=== PATIENT | female | born 1980 | race Caucasian/White ===

== ENCOUNTER 2019-07-15 17:13 | Emergency (ER) | payer OTHER ==
--- NOTE | 2019-07-15 17:21 | ED Physician Documentation ---
Lower Extremity Injury - HISTORIAN Historian: patient - HPI Stated Complaint: left knee pain Chief Complaint: Lower Extremity Problem Onset: hours (3) Context: direct blow - ROS CONST: no problems - PAST HX Past History: other (hypothyroidism ) Immunizations: UTD Allergies/Adverse Reactions: Allergies Allergy/AdvReac Type Severity Reaction Status Date / Time No Known Allergies Allergy Verified 07/15/19 17:26 Home Medications: Ambulatory Orders Medication Instructions Recorded Levothyroxine Sodium [Euthyrox] 175 mcg PO DAILY 07/15/19 Oxybutynin Chloride [Ditropan Xl] 15 mg PO DAILY 07/15/19 - SOCIAL HX Smoking History: cigarettes Alcohol Use: none Drug Use: none - FAMILY HX Family History: none - VITAL SIGNS Vital Signs: Vital Signs Temp Pulse Resp BP Pulse Ox 98.1 F 57 L 20 144/100 94 07/15/19 17:52 07/15/19 17:52 07/15/19 17:52 07/15/19 17:52 07/15/19 17:52 - REVIEWED ASSESSMENTS Nursing Assessment Reviewed: Yes Vitals Reviewed: Yes ED Results Lab/Radiology - Orders Orders: ED Orders Category Date Time Status KNEE 3 VIEWS [RAD] Stat Exams 07/15/19 Completed Lower Extremities Injury Phy - Physical Exam General Appearance: no acute distress Knees: right: non-tender, normal inspection, normal range of motion, no evidence of injury, left: bone tenderness, pain, N/A: deformity, soft tissue tenderness, swelling Ligaments: pain on anterior drawer Gait: limited by pain Neuro/Vascular/Tendon: no vascular compromise Head/ENT: nml inspection Neck/Back: nml inspection Resp/CVS: chest non-tender Abdomen: non-tender Discharge Clincal Impression: Left knee pain Qualifiers: Chronicity: acute Qualified Code(s): M25.562 - Pain in left knee Referrals: Primary Doctor,No [Primary Care Provider] - 2 Days Comments: 1. Keep leg elevated and ice rest 2. OTC meds as needed as directed for pain 3. See PCP or work comp dr for follow up in 2-3 days 4. Return to ER for any increased concerns Condition: Stable Disposition: 01 HOME, SELF-CARE Decision to Admit: NO Date of Decison to Admit: 07/15/19 Decision Time: 17:20
[2019-07-15 17:25] VITALS: BP 144/100
--- NOTE | 2019-07-15 17:41 | Diagnostic Imaging Report ---
PATIENT MR#: [id number] PATIENT PATIENT NAME: ALYX BAEZ DATE OF : 1980 REFERRING PHYSICIAN: Lynn Montano EXAM DATE: 07/15/2019 ACCESSION NUMBER: [id number] EXAM DESCRIPTION: KNEE 3 VIEWS Left knee 3 views Clinical history knee pain Technique AP lateral sunrise Findings: The joint space is normal. There is no fracture or joint effusion. Bone density is normal Impression negative study Read by: Dr. Maurice Son Transcribed by: Transcribed Date: Electronically signed by: Dr. Maurice Son Date signed: 07/15/2019 5:40:33 PM
== END 2019-07-15 17:53 | disposition home or self-care (01) ==
LOC: ED 17:13
DX: M25.562 Pain in left knee (principal)
CPT/HCPCS: 73562; 99282